=== PATIENT | male | born 1970 | race African-American/Black ===

== ENCOUNTER 2023-08-17 11:00 | Inpatient (IN) | payer OTHER ==
[2023-08-17] MEDS ORDERED: levETIRAcetam 500 MG/5 ML INJECTION VIAL IVPB ONE (14:48)
[2023-08-17] MEDS: levETIRAcetam 500 MG/5 ML INJECTION VIAL IVPB ONE (14:53)
[2023-08-17 14:59] LABS: INR 1.1 (0.83-1.09); PROTHROMBIN TIME (PATIENT) 12.7 SEC (9.7-13.0)
[2023-08-17 15:02] LABS: ACTIVATED PTT 28.5 SECONDS (25.2-36.5)
[2023-08-17 15:03] LABS: POTASSIUM 4.5 mmol/L (3.5-5.1)
[2023-08-17 15:06] LABS: ALBUMIN 3.6 g/dl (3.4-5.0); BLOOD UREA NITROGEN 15.9 mg/dL (7-18); CALCIUM 9.6 mg/dL (8.5-10.1)
[2023-08-17 15:09] LABS: CREATININE 0.9 mg/dL (0.55-1.3)
[2023-08-17 15:10] LABS: TOT PROT 7.4 g/dl (6.4-8.2)
[2023-08-17 15:11] LABS: BILIRUBIN,TOTAL 0.6 mg/dL (0.2-1)
[2023-08-17 15:14] LABS: BASO % 0.5 % (0-2.0); EOS % 0.2 % (0-4.5); HEMATOCRIT 35.6 % (35.4-49); HEMOGLOBIN 12.1 GM/dL (11.7-16.9); LYMPH % 20.9 % (8-40); MCH 32.8 pg (25.7-33.7); MCHC 33.9 g/dl (32.0-35.9); MEAN CELL VOLUME 96.6 fl (80-96); MEAN PLT VOLUME 6.9 fl (7.5-11.1); MONO % 5.5 % (3.8-10.2); NEUT % 72.9 % (42.8-82.8); PLATELET COUNT 427 10^3/uL (134-434); RBC 3.69 M/mm3 (4.00-5.60); RDW 13.1 % (11.9-15.9); WHITE BLOOD COUNT 11.7 K/mm3 (4.0-10.0)
[2023-08-17 17:47] LABS: PH,URINE 5.5 (5.0-8.0); URINE APPEARANCE CLEAR; URINE BILIRUBIN NEGATIVE (NEGATIVE); URINE COLOR YELLOW; URINE GLUCOSE (UA) NEGATIVE (NEGATIVE); URINE KETONE NEGATIVE (NEGATIVE); URINE LEUK ESTERASE NEGATIVE (NEGATIVE); URINE NITRITE NEGATIVE (NEGATIVE); URINE PROTEIN NEGATIVE (NEGATIVE); URINE UROBILINOGEN 0.2 mg/dL (0.2-1.0)
[2023-08-17] MEDS: levETIRAcetam 500 MG TABLET (FP) PO SCH (22:56)
[2023-08-17] MEDS: ATORVASTATIN CA 40 MG TABLET (FP) PO SCH (22:57)
[2023-08-18 01:50] VITALS: BMI 22.9
[2023-08-18 08:25] LABS: BASO % 0.8 % (0-2.0); HEMATOCRIT 37.7 % (35.4-49); HEMOGLOBIN 13.1 GM/dL (11.7-16.9); LYMPH % 34.1 % (8-40); MCH 33.6 pg (25.7-33.7); MCHC 34.8 g/dl (32.0-35.9); MEAN CELL VOLUME 96.5 fl (80-96); MEAN PLT VOLUME 6.9 fl (7.5-11.1); NEUT % 55.1 % (42.8-82.8); PLATELET COUNT 430 10^3/uL (134-434); RBC 3.91 M/mm3 (4.00-5.60); WHITE BLOOD COUNT 7.5 K/mm3 (4.0-10.0)
[2023-08-18 09:14] LABS: ALBUMIN 3.5 g/dl (3.4-5.0); BLOOD UREA NITROGEN 14.5 mg/dL (7-18); CALCIUM 9.9 mg/dL (8.5-10.1); MAGNESIUM 2.1 mg/dL (1.8-2.4)
[2023-08-18 09:17] LABS: CREATININE 0.8 mg/dL (0.55-1.3)
[2023-08-18 09:19] LABS: BILIRUBIN,TOTAL 0.9 mg/dL (0.2-1)
[2023-08-18 09:21] LABS: PHOSPHOROUS 4.2 mg/dL (2.5-4.9)
[2023-08-18 09:22] LABS: TOT PROT 7.5 g/dl (6.4-8.2)
[2023-08-18] MEDS: PANTOPRAZOLE 20 MG TABLET PO SCH (09:58)
[2023-08-18] MEDS: ESCITALOPRAM OXALATE 10 MG TABLET PO SCH (09:58)
[2023-08-19] MEDS: ASPIRIN COATED 81 MG TABLET.EC PO SCH (09:29)
[2023-08-21] MEDS: LOSARTAN POTASSIUM 50 MG TABLET PO SCH (09:58)
[2023-08-21 16:01] VITALS: BP 107/65; PULSE 85; RESP 18; TEMP 98.3
== END 2023-08-21 16:15 | DRG 45 ==
LOC: JER 11:00 → JERBED 16:17 → J4W 08-18 01:28
PROVIDERS: ADMIT Internal Medicine; ATTEND Internal Medicine
DX: I63.9 Cerebral infarction, unspecified (principal); G81.91 Hemiplegia, unspecified affecting right dominant side; K76.0 Fatty (change of) liver, not elsewhere classified; R56.9 Unspecified convulsions; R47.01 Aphasia; E78.5 Hyperlipidemia, unspecified; I10 Essential (primary) hypertension; R74.01 Elevation of levels of liver transaminase levels; R79.89 Other specified abnormal findings of blood chemistry
CPT/HCPCS: 36415; 70450-TC; 70551-TC; 71045-TC-FY; 76705-TC; 80053; 81003; 82550; 82962; 82977; 83605; 83735; 84100; 84443; 84484; 85025; 85610; 85730; 86704; 86803; 86850; 86900; 86901; 87086; 87340; 87517; 93005; 93010; 93306-TC; 93880-TC; 99285-25